=== PATIENT | female | born 1985 | race Caucasian/White ===

== ENCOUNTER 2021-08-19 15:50 | Outpatient (REF) | payer SELFPAY ==
[2021-08-19 16:05] LABS: Binax Now Covid-19 Ag Positive (Negative)
[2021-08-19 16:06] LABS: Binax Internal Control QC Valid
== END 2021-08-19 15:51 | disposition home or self-care (01) ==
LOC: HO.LAB 15:50
PROVIDERS: Visit Provider Internal Medicine
DX: Z20.822 Contact with and (suspected) exposure to COVID-19 (principal)
CPT/HCPCS: C9803